=== PATIENT | female | born 1975 | race Caucasian/White ===

== ENCOUNTER 2017-12-03 16:20 | Inpatient (IN) | payer SELFPAY ==
--- NOTE | 2017-12-03 16:42 | EDPHY ---
H & P Time Seen by Provider: 12/03/17 16:42 HPI/ROS: Chief complaint. Abdominal pain HPI. 42-year-old female presents to the emergency sore more upper abdominal pain that began 20 min ago. No injury. Nausea without vomiting. It hurts to lie back and hurts in her abdomen when she tries is a take a deep breath making her have a sense of shortness of breath. She however has no chest symptoms of including cough or pain in her chest. No similar symptoms previously. She had eaten a meal recently prior to onset of symptoms. No urinary symptoms. Pain is in the upper abdomen on both sides of the epigastrium. ROS Constitutional. no fever/chills, no weakness Eyes. no problems with vision ENT. no sore throat, no nasal drainage Cardiovascular. no chest pain Respiratory. Shortness of breath Abdominal. Upper abdominal pain with nausea . no problems urinating MS. no calf pain/swelling, no neck/back pain, no joint pain Skin. no rash Lymph. no swollen glands Neuro. no headache, no dizziness, no difficulty walking or with speech Past Medical/Surgical History: Healthy Social History: , daily smoker, no alcohol Smoking Status: Light smoker Physical Exam: General Appearance: Alert well-developed female moderate distress vital signs are stable Eyes: Pupils equal and round no pallor or injection. ENT, Mouth: Mucous membranes are moist. Respiratory: There are no retractions, lungs are clear to auscultation. Cardiovascular: Regular rate and rhythm. Gastrointestinal: Abdomen is soft with tenderness in the right upper and left upper quadrants as well as the epigastrium. No masses. No organomegaly Neurological: Awake and alert, sensory and motor exams grossly normal. Skin: Warm and dry, no rashes. Musculoskeletal: Neck is supple nontender. Extremities symmetrical, full range of motion. Psychiatric: Patient is oriented X 3, there is no agitation. Constitutional: Initial Vital Signs Temperature (C) 36.8 C 12/03/17 16:24 Heart Rate 80 12/03/17 16:24 Respiratory Rate 24 H 12/03/17 16:24 Blood Pressure 117/99 H 12/03/17 16:24 O2 Sat (%) 99 12/03/17 16:24 O2 Delivery Mode Room Air Allergies/Adverse Reactions: No Known Allergies Allergy (Unverified 12/03/17 16:29) Medical Decision Making - Diagnostics Imaging Results: Imaging Impressions Abdomen Ultrasound 12/03/17 16:53 Impression: 1. Enlarged echogenic liver. 2. Normal gallbladder. Results called and discussed with KJ AARON, at 12/03/2017 17:44 Chest X-Ray 12/03/17 16:53 Impression: Possible airways disease. No pneumonia. Gallbladder ultrasound reviewed by me and discussed Dr. Odom is normal Chest x-ray interpreted by me is normal Procedures: IV normal saline. Dilaudid for pain. Zofran for nausea ED Course/Re-evaluation: Re-evaluation at 5:50 p.m.. Patient, her , and I discussed laboratory evaluation, treatment plan including recommendation for admission. They expressed understanding and agreement I consulted and discussed the case with Dr. Oquendo, hospitalist, who agrees to the admission Differential Diagnosis: I considered gallbladder disease, pancreatitis, peptic ulcer disease. - Data Points Laboratory Results: Laboratory Results 12/03/17 16:45 12/03/17 16:45 12/03/17 12/03/17 12/03/17 16:45 16:45 16:45 WBC 9.85 10^3/uL H 10^3/uL (3.80-9.50) RBC 4.81 10^6/uL 10^6/uL (4.18-5.33) Hgb 14.4 g/dL g/dL (12.6-16.3) Hct 40.9 % % (38.0-47.0) MCV 85.0 fL fL (81.5-99.8) MCH 29.9 pg pg (27.9-34.1) MCHC 35.2 g/dL g/dL (32.4-36.7) RDW 13.2 % % (11.5-15.2) Plt Count 280 10^3/uL 10^3/uL (150-400) MPV 10.0 fL fL (8.7-11.7) Neut % (Auto) 49.7 % % (39.3-74.2) Lymph % (Auto) 42.7 % % (15.0-45.0) [place] % (Auto) 5.5 % % (4.5-13.0) Eos % (Auto) 1.2 % % (0.6-7.6) Baso % (Auto) 0.4 % % (0.3-1.7) Nucleat RBC Rel Count 0.0 % % (0.0-0.2) Absolute Neuts (auto) 4.89 10^3/uL 10^3/uL (1.70-6.50) Absolute Lymphs (auto) 4.21 10^3/uL H 10^3/uL (1.00-3.00) Absolute Monos (auto) 0.54 10^3/uL 10^3/uL (0.30-0.80) Absolute Eos (auto) 0.12 10^3/uL 10^3/uL (0.03-0.40) Absolute Basos (auto) 0.04 10^3/uL 10^3/uL (0.02-0.10) Absolute Nucleated RBC 0.00 10^3/uL 10^3/uL (0-0.01) Immature Gran % 0.5 % % (0.0-1.1) Immature Gran # 0.05 10^3/uL 10^3/uL (0.00-0.10) Sodium 141 mEq/L mEq/L (135-145) Potassium 4.1 mEq/L mEq/L (3.3-5.0) Chloride 107 mEq/L mEq/L (97-110) Carbon Dioxide 24 mEq/l mEq/l (22-31) Anion Gap 10 mEq/L mEq/L (8-16) BUN 16 mg/dL mg/dL (7-23) Creatinine 0.7 mg/dL mg/dL (0.6-1.0) Estimated GFR > 60 Glucose 104 mg/dL H mg/dL (70-100) Calcium 9.3 mg/dL mg/dL (8.5-10.4) Total Bilirubin 0.8 mg/dL mg/dL (0.1-1.4) Conjugated Bilirubin 0.2 mg/dL mg/dL (0.0-0.5) Unconjugated Bilirubin 0.6 mg/dL mg/dL (0.0-1.1) AST 48 IU/L H IU/L (14-46) ALT 52 IU/L IU/L (9-52) Alkaline Phosphatase 108 IU/L IU/L (38-126) Total Protein 7.6 g/dL g/dL (6.3-8.2) Albumin 4.2 g/dL g/dL (3.5-5.0) Lipase 3613 IU/L H IU/L (23-300) Beta HCG, Qual NEGATIVE Medications Given: Discontinued Medications Hydromorphone HCl (Dilaudid) 0.5 mg IVP EDNOW ONE Stop: 12/03/17 16:54 Last Admin: 12/03/17 17:01 Dose: 0.5 mg Sodium Chloride (Ns) 1,000 mls @ 0 mls/hr IV EDNOW ONE; Wide Open PRN Reason: Protocol Stop: 12/03/17 16:54 Last Admin: 12/03/17 17:03 Dose: 1,000 mls Ondansetron HCl (Zofran) 4 mg IVP EDNOW ONE Stop: 12/03/17 16:54 Last Admin: 12/03/17 17:01 Dose: 4 mg Departure - Departure Disposition: [facility] Inpatient Acute Clinical Impression: Pancreatitis Qualifiers: Chronicity: acute Pancreatitis type: unspecified pancreatitis type Acute pancreatitis complication: unspecified Qualified Code(s): K85.90 - Acute pancreatitis without necrosis or infection, unspecified Condition: Fair Referrals: NONE *PRIMARY CARE P,. [Primary Care Provider] - As per Instructions
[2017-12-03] MEDS ORDERED: HYDROmorphONE/DILAUDID 2 MG/ML INJ IVP ONE (16:53)
[2017-12-03] MEDS ORDERED: ONDANSETRON 4 MG/2 ML VIAL IVP ONE (16:53)
[2017-12-03] MEDS ORDERED: NS 1,000 ML IV ONE (16:53)
[2017-12-03 17:04] LABS: PLATELET COUNT 280 10^3/uL (150-400)
[2017-12-03] MEDS ORDERED: ACETAMINOPHEN 325 MG TAB PO PRN (18:55)
[2017-12-03] MEDS ORDERED: PROMETHAZINE HCL 25 MG/ML INJ IVP PRN (18:55)
[2017-12-03] MEDS ORDERED: fentaNYL 100 MCG/2 ML INJ IVP PRN (18:58)
[2017-12-03] MEDS: LR 1,000 ML IV SCH (19:54)
[2017-12-03] MEDS: ONDANSETRON 4 MG/2 ML VIAL IVP PRN (20:28)
[2017-12-03] MEDS: HYDROmorphONE/DILAUDID 1 MG/ML INJ IVP PRN ×2 (20:28→23:09)
--- NOTE | 2017-12-04 00:01 | GHP ---
[f rep st] HISTORY AND PHYSICAL DATE OF ADMISSION: 12/03/2017 CHIEF COMPLAINT: Epigastric pain. HISTORY OF PRESENT ILLNESS: The patient is a pleasant 42-year-old female with no significant past me dical history who presented to the [facility] emergency room earlier today after deve loping significant epigastric pain after eating a meal. Her workup in the emergency room was notable for an elevated lipase level of 3613. She did have an ultrasound obtained as well which showed a la rge echogenic liver but a normal gallbladder. No biliary of obstruction was seen. The pancreas was poorly visualized. Due to the severity of her pain and evidence of pancreatitis, she is being admitt ed for pain control as well as supportive care for pancreatitis. PAST MEDICAL HISTORY: Hypertriglyceridemia. PAST SURGICAL HISTORY: None. MEDICATIONS: None. ALLERGIES: No known drug allergies. FAMILY HISTORY: Patient states that her mother and father both have elevated triglycerides and are b oth treated. There is no family history of pancreatitis. SOCIAL HISTORY: Patient is currently . She has 5 children. She is a tobacco user. No signi ficant alcohol use. REVIEW OF SYSTEMS: CONSTITUTIONAL: No complaints of any subjective fevers, chills. ENT: No recent upper respiratory illnesses. CARDIOVASCULAR: No complaints of chest pains, palpitations, or syncop al episodes. RESPIRATORY: No complaints of shortness of breath or productive cough. GI: Positive for epigastric pain with associated nausea. No significant emesis. No bloody stools. : No repor ts of any difficulty with urination. NEUROLOGIC: No complaints of headaches or focal weakness. HEM ATOLOGIC: No history of any deep vein thrombosis or pulmonary embolism. PSYCHIATRIC: No history of anxiety or depression. ENDOCRINE: No history of diabetes or thyroid abnormalities. No polyuria. SKIN: No new skin rashes or bruising appreciated. MUSCULOSKELETAL: No focal joint pains. PHYSICAL EXAM: VITAL SIGNS: Temperature 36.8, blood pressure 117/99, heart rate 80, respirations 24 , saturating 99% on room air. GENERAL: Patient [id number] distressed secondary to epigastri c pain, but she was able to converse and provide some history. Her was present at the [facility] as well to assist. HEENT: Extraocular movements appear intact. No scleral icterus noted. NECK: Supple. No thyroid enlargement noted. CHEST: Clear to auscultation with normal respiratory effort . HEART: Regular. No murmurs. ABDOMEN: Very tender at the epigastrium. Normal bowel sounds. No ndistended. : No Mascorro catheter in place. EXTREMITIES: No significant pitting edema noted. IONA ROLOGIC: Cranial nerves 2-12 grossly intact with 5/5 strength in extremities. LABS: White blood cell count is 9, hemoglobin 14, platelets 280. Sodium 141, potassium 4.1, chlorid e 107, bicarb 24, BUN 16, creatinine 0.7, glucose of 104, AST 48, ALT 52, alkaline phosphatase 108, b ilirubin is 0.8, lipase 3613. Beta hydroxybutyrate negative. IMAGING: As detailed above. ASSESSMENT/PLAN: 1. Pancreatitis, acute. Unclear etiology but suspicious for secondary to elevated triglycerides, wh ich she states has been noted in the past up to the 900s. There is also a family history of elevated triglycerides as well. She does not drink alcohol, and there are no concerning findings on her righ t upper quadrant ultrasound suggesting of gallstone disease. I recommend supportive intravenous flui ds as well as pain control as well as medications for nausea. We will obtain lipid panel tomorrow mo rning to assess her triglyceride level, and if in fact elevated we may want to consider focused treat ment for elevated triglycerides. 2. Deep venous thrombosis prophylaxis: Lovenox. DISPOSITION: I anticipate, considering the severity of her pain, she will likely need inpatient stat us as well as anticipating the need for several days of slowly advancing her diet. /[id number]/MODL
[2017-12-04] MEDS: LR 1,000 ML IV SCH ×2 (05:03→13:33)
[2017-12-04] MEDS: HYDROmorphONE/DILAUDID 1 MG/ML INJ IVP PRN ×7 (05:03→23:01)
[2017-12-04 05:49] LABS: PLATELET COUNT 196 10^3/uL (150-400)
--- NOTE | 2017-12-04 06:56 | PDMN ---
Medical Necessity Medical necessity: Pt meets inpt criteria per MD order and MCG M-250, Pancreatitis, 2 days. Pt presented w/severe epigastric pain secondary to acute pancreatitis, lipase level 3613, hx of hypertriglyceridemia. NPO, IVF initiated , IV Dilaudid for pain control, IV Zofran for nausea. Anticipate>2MN for ongoing med nec eval and management.
[2017-12-04] MEDS: ENOXAPARIN 40 MG/0.4 ML SYR SC SCH (08:38)
[2017-12-04] MEDS: ONDANSETRON 4 MG/2 ML VIAL IVP PRN ×2 (10:02→19:17)
--- NOTE | 2017-12-04 13:12 | HOSPPROG ---
Hospitalist Progress Note Assessment/Plan: 42y female with c/o abd pain. First encounter, chart reviewed. #Acute pancreatitis -possibly from elevated triglycerides, etiol unclear -has hx of being in the 900 range -educated pt -NPO, IVF, IV pain meds #Pain -IV pain meds #Dispo -unclear -needs cont hospital care -CM to establish PCP Subjective: Still having significant pain. Some nausea. No other issues. Objective: Vital Signs Temp Pulse Resp BP Pulse Ox 37.1 C 67 14 110/68 94 12/04/17 11:42 12/04/17 11:42 12/04/17 11:42 12/04/17 11:42 12/04/17 11:42 Laboratory Results 12/04/17 05:17 12/04/17 05:17 - Physical Exam Constitutional: no apparent distress, appears nourished, uncomfortable Ears, Nose, Mouth, Throat: moist mucous membranes, hearing normal Cardiovascular: No JVD, No edema Respiratory: no respiratory distress, reduced air movement Gastrointestinal: tenderness, guarding, distension, No ascites Skin: warm, normal color Musculoskeletal: no joint effusions, pain with ROM, generalized weakness Neurologic: AAOx3 Psychiatric: interacting appropriately, not anxious, not encephalopathic ICD10 Worksheet Patient Problems: Problems Problem Status Onset Pancreatitis Acute
--- NOTE | 2017-12-04 14:06 | ASMTCASEMG ---
Living Arrangements What is your living Answers: With Spouse arrangement? Who do you live with? Type Of Residence What kind of residence do Answers: House you live in? Discharge Plan Comments Coordination Status Comments Notes: Pt is a 42 y/o female admitted for pancreatitis. Pt will most likely d/c independent without any needs. No therapies ordered at this time. Pt comes up as self pay. Med Data came and evaluated pt. Pt is over income for Medicaid. Financial counseling will follow up w/ pt. CM available for changes. Plan: Independent Date Signed: 12/04/2017 02:04 PM Electronically Signed By:CRISTA Lovell
[2017-12-05] MEDS: HYDROmorphONE/DILAUDID 1 MG/ML INJ IVP PRN ×4 (03:41→19:32)
[2017-12-05] MEDS: ENOXAPARIN 40 MG/0.4 ML SYR SC SCH (09:51)
[2017-12-05] MEDS: LR 1,000 ML IV SCH ×2 (09:51→19:33)
[2017-12-05] MEDS: ONDANSETRON 4 MG/2 ML VIAL IVP PRN (10:03)
--- NOTE | 2017-12-05 10:10 | HOSPPROG ---
Hospitalist Progress Note Assessment/Plan: Patient is a 42-year-old female who presented the emergency room with epigastric pain. Today is my 1st encounter with the patient. Chart reviewed. * acute pancreatitis -she has elevated triglycerides and this could be the etiology of this -lipase was elevated on admission -trial of clear liquids -LFT's are stable *hypertriglyceridemia (mild) -her level is not that high but will recommend treatment first w lifestyle modifications, could consider treatment since this is her second bout of pancreatitis -drug therapy is indicated for triglyceride levels persistently above 886 -will check a TSH *headache -she drinks green tea daily, suspect it's from caffeine withdrawal *nausea -due to to the headache most likely but could be from the pancreatitis *Plan: trial of clear liquids, check TSH. Subjective: Sera says she is feeling poorly, has a headache, abdominal pain a bit better than on admission. Objective: Vital Signs Temp Pulse Resp BP Pulse Ox 37.0 C 58 L 14 126/83 H 98 12/05/17 08:00 12/05/17 08:00 12/05/17 08:00 12/05/17 08:00 12/05/17 08:00 Laboratory Results 12/04/17 05:17 12/05/17 05:10 12/04/17 12/05/17 12/06/17 05:59 05:59 05:59 Intake Total 1200 Output Total 1 Balance 1199 - Physical Exam Constitutional: uncomfortable, No not in pain (headache and epigastric area) Ears, Nose, Mouth, Throat: hearing normal Cardiovascular: regular rate and rhythym Respiratory: no respiratory distress Gastrointestinal: normoactive bowel sounds, tenderness Skin: warm Musculoskeletal: full muscle strength Neurologic: AAOx3 Psychiatric: interacting appropriately ICD10 Worksheet Patient Problems: Problems Problem Status Onset Pancreatitis Acute
[2017-12-06] MEDS: HYDROmorphONE/DILAUDID 1 MG/ML INJ IVP PRN (05:41)
[2017-12-06 07:28] VITALS: BP 101/73
--- NOTE | 2017-12-06 09:08 | HOSPPROG ---
Hospitalist Progress Note Assessment/Plan: Patient is a 42-year-old female who presented the emergency room with epigastric pain. * acute pancreatitis -she has elevated triglycerides and this could be the etiology of this -lipase was elevated on admission, but now stabilized -trial of regular diet -LFT's are stable *hypertriglyceridemia (mild) -her level is not that high but will recommend treatment first w lifestyle modifications, could consider treatment since this is her second bout of pancreatitis -drug therapy is indicated for triglyceride levels persistently above 886 -TSH is stable *headache -none further *nausea -none further *Plan: dc home if eating and drinking Subjective: Tamela is feeling overall better today. Objective: Vital Signs Temp Pulse Resp BP Pulse Ox 37.1 C 83 16 101/73 92 12/06/17 07:26 12/06/17 07:26 12/06/17 07:26 12/06/17 07:26 12/06/17 07:26 Laboratory Results 12/04/17 05:17 12/06/17 05:30 12/05/17 12/06/17 12/07/17 05:59 05:59 05:59 Intake Total 1200 Output Total 1 Balance 1199 - Physical Exam Constitutional: no apparent distress, appears nourished, not in pain Eyes: PERRL Ears, Nose, Mouth, Throat: hearing normal Cardiovascular: regular rate and rhythym, bradycardia Respiratory: no respiratory distress Gastrointestinal: normoactive bowel sounds Skin: warm Musculoskeletal: full muscle strength Neurologic: AAOx3 Psychiatric: interacting appropriately ICD10 Worksheet Patient Problems: Problems Problem Status Onset Pancreatitis Acute
[2017-12-06] MEDS: ENOXAPARIN 40 MG/0.4 ML SYR SC SCH (09:58)
--- NOTE | 2017-12-06 12:12 | GDS ---
[f rep st] DISCHARGE SUMMARY DISCHARGE DIAGNOSES: 1. Pancreatitis. 2. Hypertriglyceridemia. 3. Headache. 4. Nausea. HISTORY: Briefly, the patient is a 42-year-old female with no significant past medical history. She presented to the ER after developing significant epigastric pain after eating a meal. She had an elevated lipase level. She had an ultrasound which showed a large echogenic liver, but a normal gallbladder and no biliary obstruction was seen. She was admitted for pain control as well as supportive care for pancreatitis. Throughout her stay she has improved. Recommendation is for her to get followup with her primary care provider. It is suspicious that she has had 2 bouts of pancreatitis and has had high triglyceride levels. I reviewed this with her and she will take a copy of her labs with her to review with her doctor. HOSPITAL COURSE BY PROBLEM: 1. Acute pancreatitis. Her lipase was elevated on admission, but now stabilized. Her elevated triglycerides could be an etiology of this since this is her 2nd bout. 2. Hypertriglyceridemia. This is mild. Recommendation is lifestyle modifications that could consider treatment since this is her 2nd bout. TSH was checked and this is stable. 3. Headache, none further. 4. Nausea, none further. DISCHARGE CONDITION: Stable. DISCHARGE PHYSICAL EXAMINATION: VITAL SIGNS: Blood pressure is 101/73. Respiratory rate is 16. Pulse is 83. Temperature is 37.1 Celsius. O2 sats on room air 92%. MEDICATIONS AT DISCHARGE: Please see the EMR. DISCHARGE INSTRUCTIONS: 1. To establish care with a primary care doctor in the [place] area. 2. Take a copy of her labs with her. 3. Recommended she get treatment for her elevated triglycerides. /[id number]/MODL MTDD
== END 2017-12-06 11:51 | disposition home or self-care (01) | DRG 440 ==
LOC: F3E 18:33
PROVIDERS: ADMIT Internal Medicine; ATTEND Internal Medicine
DX: K85.90 Acute pancreatitis without necrosis or infection, unspecified (principal); E78.1 Pure hyperglyceridemia; R51 Headache; R11.0 Nausea
CPT/HCPCS: 96374; J1170; J1650; J2405; J2550; J3010